=== PATIENT | male | born 1960 | race Caucasian/White ===

== ENCOUNTER 2016-11-08 19:41 | Emergency (ER) | payer OTHER ==
[~2016-11-08] VITALS: Ht 172.7 cm; Wt 90.7 kg
[2016-11-08] MEDS ORDERED: ASPIR 8181 MG PO (19:50)
[2016-11-08] MEDS ORDERED: LIPITOR 20 MG T20 M1 PO (19:50)
[2016-11-08] MEDS ORDERED: TOPROL XL25 MG PO (19:50)
[2016-11-08 20:29] LABS: ABSOLUTE NEUTROPHILS 9.5 thou/uL (1.4-8.2); BASOPHILS 0.5 % (0.0-2.0); EOSINOPHILS 2.6 % (0.0-3.0); HEMATOCRIT 41.7 % (42.0-52.0); HEMOGLOBIN 14.4 gm/dL (14.0-18.0); LYMPHOCYTES 13.5 % (24.0-44.0); MANUAL DIFF NO; MCH 31.4 pg (26.0-34.0); MCHC 34.5 g/dL (28.0-37.0); MCV 90.8 fL (80.0-100.0); PLATELET COUNT 197 thou/uL (150-400); POLYS 73.4 % (36.0-66.0); RBC 4.59 mil/uL (4.50-6.00); RDW 13.5 % (10.5-14.5)
[2016-11-08 20:40] LABS: APTT 27.1 Seconds (24.5-32.8); PROTIME 9.7 Seconds (9.3-11.4)
[2016-11-08 20:41] LABS: CALCIUM 8.3 mg/dL (8.5-10.1); CREATININE 0.9 mg/dL (0.7-1.3); POTASSIUM 4.4 mmol/L (3.5-5.1)
[2016-11-08 20:45] LABS: ALBUMIN 3.7 g/dL (3.4-5.0); TOTAL BILIRUBIN 0.3 mg/dL (<0.1-1.0); TOTAL PROTEIN 7.4 g/dL (6.4-8.2)
[2016-11-08] MEDS ORDERED: DOXYCYCLINE 10100 MG PO (21:59)
[2016-11-08] MEDS ORDERED: NORCO 5-325 TA1 EACH PO (22:00)
[2016-11-08 22:27] VITALS: BP 122/72
== END 2016-11-08 22:35 | disposition home or self-care (01) ==
LOC: ER 19:41
PROVIDERS: Emergency Medicine
DX: R21 Rash and other nonspecific skin eruption (principal); Z95.1 Presence of aortocoronary bypass graft; I10 Essential (primary) hypertension; E78.00 Pure hypercholesterolemia, unspecified; Z79.82 Long term (current) use of aspirin

== ENCOUNTER 2016-12-12 18:34 | Emergency (ER) | payer OTHER ==
[~2016-12-12] VITALS: Ht 172.7 cm; Wt 74.8 kg
[~2016-12-12 18:34] MED LIST: ASPIR 8181 MG PO; DOXYCYCLINE 10100 MG PO; LIPITOR 20 MG T20 M1 PO; NORCO 5-325 TA1 EACH PO; TOPROL XL25 MG PO
[2016-12-12 19:06] LABS: ABSOLUTE NEUTROPHILS 8.1 thou/uL (1.4-8.2); BASOPHILS 0.7 % (0.0-2.0); EOSINOPHILS 1.9 % (0.0-3.0); HEMATOCRIT 43.3 % (42.0-52.0); HEMOGLOBIN 15.1 gm/dL (14.0-18.0); MCH 31.3 pg (26.0-34.0); MCHC 34.9 g/dL (28.0-37.0); MCV 89.8 fL (80.0-100.0); MONOCYTES 7.9 % (1.0-8.0); PLATELET COUNT 314 thou/uL (150-400); POLYS 68.5 % (36.0-66.0); RBC 4.83 mil/uL (4.50-6.00); RDW 13.8 % (10.5-14.5); WBC 11.9 thou/uL (4.0-11.0)
[2016-12-12 19:07] LABS: MANUAL DIFF NO
[2016-12-12 19:20] LABS: CALCIUM 8.8 mg/dL (8.5-10.1); CREATININE 1.3 mg/dL (0.7-1.3); POTASSIUM 3.7 mmol/L (3.5-5.1)
[2016-12-12 20:09] LABS: AMP/METHAMP POSITIVE (Negative); BARBITURATES Negative (Negative); BENZODIAZEPINES Negative (Negative); COCAINE Negative (Negative); METHADONE Negative (Negative); OPIATES Negative (Negative); PCP Negative (Negative); THC Negative (Negative)
[2016-12-12] MEDS ORDERED: MOBIC15 MG PO (20:25)
[2016-12-12 20:51] VITALS: BP 133/94
== END 2016-12-12 20:52 | disposition home or self-care (01) ==
LOC: ER 18:34
PROVIDERS: Physician Assistant
DX: M54.2 Cervicalgia (principal); F15.10 Other stimulant abuse, uncomplicated; F17.210 Nicotine dependence, cigarettes, uncomplicated; Z88.1 Allergy status to other antibiotic agents